=== PATIENT | female | born 2000 | race Hispanic/Latino ===

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

== ENCOUNTER 2019-04-02 16:08 | Emergency (ER) | payer SELFPAY ==
[2019-04-02] MEDS ORDERED: Ibuprofen 200 MG TAB ONE (16:28)
== END 2019-04-02 16:32 | disposition home or self-care (01) ==
LOC: BURERS 16:08
DX: S16.1XXA Strain of muscle, fascia and tendon at neck level, initial encounter (principal); M54.6 Pain in thoracic spine; V43.52XA Car driver injured in collision with other type car in traffic accident, initial encounter

== ENCOUNTER 2019-10-11 18:32 | Emergency (ER) | payer OTHER ==
[2019-10-11 19:23] LABS: Bilirubin Negative (Negative); Blood, Urine Negative (Negative); Clarity Clear (Clear); Glucose, Urine (Dipstick) Negative (Negative); Leukocyte Negative (Negative); Nitrite Negative (Negative); Protein, Urine (Dipstick) Negative (Neg-Trace); Urobilinogen 0.2 mg/dL (Less than 2)
== END 2019-10-11 19:05 | disposition home or self-care (01) ==
LOC: BURERS 18:32
DX: K92.1 Melena (principal); K59.00 Constipation, unspecified
CPT/HCPCS: 81003; 99284

== ENCOUNTER 2023-01-10 13:01 | Emergency (ER) | payer MEDICAID, OTHER ==
[2023-01-10] MEDS ORDERED: Ibuprofen 800 MG TAB ONE (13:46)
== END 2023-01-10 14:32 | disposition home or self-care (01) ==
LOC: BURERS 13:01
DX: B34.9 Viral infection, unspecified (principal)
CPT/HCPCS: 87081; 87430; 87804; 99283

== ENCOUNTER 2023-07-02 10:34 | Emergency (ER) | payer OTHER, SELFPAY ==
[2023-07-02] MEDS ORDERED: Dexamethasone 10 MG/ML VIAL ONE (11:18)
== END 2023-07-02 11:29 | disposition home or self-care (01) ==
LOC: BURERS 10:34
DX: J02.9 Acute pharyngitis, unspecified (principal)
CPT/HCPCS: 87081; 87430; 87804; 99283; J1100

== ENCOUNTER 2025-06-23 11:58 | Emergency (ER) | payer OTHER, SELFPAY ==
[2025-06-23] MEDS ORDERED: Ketorolac Tromethamine 30 MG (1 mL) VIAL ONE (12:21)
== END 2025-06-23 12:56 | disposition home or self-care (01) ==
LOC: BURERS 11:58
DX: M79.605 Pain in left leg (principal)
CPT/HCPCS: 96372; 99283; J1885